=== PATIENT | male | born 1940 | race Caucasian/White ===

== ENCOUNTER 2017-02-10 19:51 | Emergency (ER) | payer MEDICARE, OTHER ==
[~2017-02-10 19:51] MED LIST: ATV1; ATV1 PO; CEFT5 PO; DENIES HOME MEDS; PRILOSEC40 MG PO; PROVENT20 INH; ZITHROMAX500 MG PO
== END 2017-02-10 21:35 | disposition home or self-care (01) ==
LOC: ER 19:51
PROC: 0WQ2XZZ Repair Face, External Approach (ICD-10-PCS; principal; 2017-02-10)
DX: S01.81XA Laceration without foreign body of other part of head, initial encounter (principal); F03.90 Unspecified dementia, unspecified severity, without behavioral disturbance, psychotic disturbance, mood disturbance, and anxiety; I10 Essential (primary) hypertension; K21.9 Gastro-esophageal reflux disease without esophagitis; F41.9 Anxiety disorder, unspecified; Z79.899 Other long term (current) drug therapy; W19.XXXA Unspecified fall, initial encounter
CPT/HCPCS: 99284